=== PATIENT | male | born 1990 | race Caucasian/White ===

== ENCOUNTER 2017-05-10 08:20 | Emergency (ER) | payer OTHER ==
[2017-05-10 08:30] VITALS: BP 120/93
[2017-05-10] MEDS ORDERED: BOOSTRIX IM ONE (09:38)
[2017-05-10] MEDS ORDERED: NORCO 7.5/325 PO ONE (09:38)
[2017-05-10] MEDS ORDERED: XYLOCAINE 1% MPF 5 mL INFILTRATI ONE (09:43)
--- NOTE | 2017-05-10 10:18 | XRay Report ---
RIGHT FINGERS, 3 VIEWS History: Injury, laceration. Findings: There is a complex soft tissue defect of the distal fourth digit. Mildly displaced tuft fracture of the fourth digit is also identified. No radiopaque foreign body is detected. The remaining right fingers are intact. No joint pathology. Impression: Tuft fracture, fourth digit. Associated complex soft tissue laceration.
[2017-05-10] MEDS ORDERED: POLYSPORIN TP ONE (11:50)
--- NOTE | 2017-05-10 13:30 | Emergency Department Report ---
ED Laceration HPI - HPI Chief Complaint: Wound/Laceration Stated Complaint: CUT FINGER Occurred When: Today Location: Upper Extremity (right 4th digit) Severity: mild Tetanus Status: Not up to Date Laceration Symptoms: Yes Pain, No Foreign Body Sensation, No Numbness, No Weakness Other History: 26 year old male presents to ED with right distal 4th digit laceration. patient cut on finger on machinery at work today. bleeding well controlled. patient unsure of last tetanus shot. patient is stable, neurologically intact and in no acute distress. ED Review of Systems ROS: Stated complaint: CUT FINGER Other details as noted in HPI Constitutional: denies: chills, fever Eyes: denies: eye pain, eye discharge, vision change ENT: denies: ear pain, throat pain Respiratory: denies: cough, shortness of breath, wheezing Cardiovascular: denies: chest pain, palpitations Endocrine: no symptoms reported Gastrointestinal: denies: abdominal pain, nausea, diarrhea Genitourinary: denies: urgency, dysuria Musculoskeletal: arthralgia (right 4th digit laceration and swelling). denies: back pain, joint swelling Skin: other. denies: rash, lesions Neurological: denies: headache, weakness, paresthesias Psychiatric: denies: anxiety, depression Hematological/Lymphatic: denies: easy bleeding, easy bruising ED Past Medical Hx - Past Medical History Previous Medical History?: No - Surgical History Past Surgical History?: No - Social History Smoking Status: Never Smoker Substance Use Type: Alcohol, Marijuana - Medications Home Medications: Home Medications Medication Instructions Recorded Confirmed Last Taken Type Sulfamethoxazole/Trimethoprim 1 each PO BID #20 tablet 05/10/17 Unknown Rx [Bactrim DS TAB] Laceration Physical Exam - Exam General: Vital signs noted. No distress. Alert and acting appropriately. Wound Length (cm): 2 Laceration Location: Upper Extremity (right 4th digit laceration at distal fingertip) Laceration Exam: Yes Normal Distal CMS, No Foreign Body, No Exposed Tendon, Vessel, or Nerve, No Tendon Injury ED Course Vital Signs 05/10/17 08:26 Temperature 98.7 F Pulse Rate 87 Respiratory 18 Rate Blood Pressure 120/93 O2 Sat by Pulse 97 Oximetry - Laceration /Wound Repair Right Distal Palm Finger Wound Location: upper extremity Wound Length (cm): 2 Wound's Depth, Shape: irregular Wound Explored: clean Irrigated w/ Saline (ccs): 100 Betadine Prep?: Yes Anesthesia: 1% Lidocaine Volume Anesthetic (ccs): 5 Wound Debrided: moderate Wound Repaired With: sutures Suture Size/Type: 5:0, proline Number of Sutures: 6 Layer Closure?: No Sterile Dressing Applied?: Yes ED Medical Decision Making - Radiology Data Radiology results: report reviewed xr right finger Tuft fracture, fourth digit. Associated complex soft tissue laceration. - Medical Decision Making 26 year old male presents to ED with right 4th finger (ring finger) laceration. patient has tolerated procedure well and bleeding is well controlled. patient placed in splint and he understands I have made him an appt with Dr Ruth at 930 on Wednesday05/12/2017 (2 days from today.) patient is stable, neurologically intact and in no acute distress. Critical care attestation.: If time is entered above; I have spent that time in minutes in the direct care of this critically ill patient, excluding procedure time. ED Disposition Clinical Impression: Laceration of finger of right hand Qualifiers: Encounter type: initial encounter Finger: ring finger Damage to nail status: with damage Foreign body presence: without foreign body Qualified Code(s): S61.314A - Laceration without foreign body of right ring finger with damage to nail, initial encounter Disposition: DC-01 TO HOME OR SELFCARE Is pt being admited?: No Does the pt Need Aspirin: No Condition: Stable Instructions: Finger Laceration (ED) Additional Instructions: You have an appointment with Dr. Faraz Camacho MD on Wednesday05/10/2017 at 930am. Please bring your workers comp information to your appointment or you will have to pay rico ($200). Please take antibiotics as prescribed to you today. Please keep stitches dry and gently wash your finger with antibacterial soap and warm water every day. Please return to ED or urgent care or PCP within 7-10 days. Prescriptions: Sulfamethoxazole/Trimethoprim [Bactrim DS TAB] 1 each PO BID #20 tablet Referrals: NAN VILLASENOR MD [Primary Care Provider] - 3-5 Days LORENZO RUTH MD [Staff Physician] - 2-3 Days (November 12, 2016 @ 930am) Forms: Work/School Release Form(ED)
== END 2017-05-10 12:17 | disposition home or self-care (01) ==
LOC: ED 08:20
DX: S61.314A Laceration without foreign body of right ring finger with damage to nail, initial encounter (principal); F12.10 Cannabis abuse, uncomplicated; W45.8XXA Other foreign body or object entering through skin, initial encounter; Y93.9 Activity, unspecified; Y92.9 Unspecified place or not applicable; Y99.9 Unspecified external cause status
CPT/HCPCS: 90471; 90715; 99283